=== PATIENT | female | born 1965 | race Hispanic/Latino ===

== ENCOUNTER → 2017-06-17 | Outpatient (CLI) | payer BC, SELFPAY ==
--- NOTE | 2017-06-17 16:12 | CT ---
EXAM DESCRIPTION: Head CLINICAL HISTORY: 52 years, Female, HEADACHE COMPARISON: FINDINGS: Unenhanced images through the brain. This examination was performed according to our departmental dose optimization program, which includes automatic exposure control, adjustment of the MA and/or kV according to the patient size and/or use of iterative reconstruction technique. No intracranial hemorrhage or mass. Mildly prominent sulci probably within normal limits. Ventricles are unremarkable. Mild ethmoid sinus mucosal thickening. IMPRESSION: No hemorrhage or mass. Mild ethmoid sinus mucosal thickening. Electronically signed by: Dago Reza MD 06/17/2017 4:10 PM CDT
== END | disposition home or self-care (01) ==
LOC: CT 09:27
PROVIDERS: ATTEND Family Medicine
DX: R51 Headache (principal)

== ENCOUNTER → 2017-08-11 | Outpatient (CLI) | payer BC, SELFPAY ==
--- NOTE | 2017-08-12 17:33 | MAM ---
EXAM DESCRIPTION: 3D Screening BILATERAL : Digital Mammography. CLINICAL HISTORY: 52 years Female SCREENING . No complaints. Sister with breast cancer. Postmenopausal. Has taken HRT. COMPARISON: 2-D digital digital screening bilateral study 08/03/2016 and 07/09/2015.. Report from prior examination also reviewed. TECHNIQUE: Bilateral CC and MLO projection full-field images, 3-D tomosynthesis digital mammographic technique. Also bilateral synthesized CC/ MLO full-field images . CAD not utilized. FINDINGS: The breast parenchymal density pattern is: Heterogeneously dense breast tissue, which may obscure small masses. No skin thickening or nipple retraction bilateral solitary microcalcifications. Left breast axillary lymph nodes. No focal, stellate mass or density, focal asymmetry , and no suspicious microcalcifications bilaterally. Stable mammograms compared to prior study, taking into account differences in mammographic technique IMPRESSION: BI-RADS CATEGORY: 2 - BENIGN FINDINGS. FOLLOW UP: Routine digital bilateral screening, one year interval from July 2017. Written communication explaining the IMPRESSION and follow-up, will be mailed to the patient and referring health care provider. According to the [employer], yearly mammograms are recommended starting at age 40 and continuing as long as a woman is in good health. Any breast change noted on a breast self-exam should be reported promptly to the patient's healthcare provider. Breast MRI is recommended for women with an approximately 20-25% or greater lifetime risk of breast cancer, including women with a strong family history of breast or ovarian cancer and women who have been treated for Hodgkin's disease. A negative mammographic report should not delay tissue diagnosis in patients with significant clinical history or physical findings. Extremely dense breast tissue limits the sensitivity of digital mammography. Electronically signed by: Brent Mcintosh MD 08/12/2017 5:32 PM [facility]
== END | disposition home or self-care (01) ==
LOC: MAMMO 07:54
PROVIDERS: ATTEND Obstetrics & Gynecology
DX: Z12.31 Encounter for screening mammogram for malignant neoplasm of breast (principal)
CPT/HCPCS: 77063; G0202

== ENCOUNTER → 2018-12-28 | Outpatient (CLI) | payer BC | LOC: GMAH 10:50 | PROVIDERS: ATTEND Family Medicine | DX: E03.9 Hypothyroidism, unspecified (principal); I10 Essential (primary) hypertension; E78.2 Mixed hyperlipidemia ==

== ENCOUNTER → 2019-04-12 | Outpatient (CLI) | payer BC ==
--- NOTE | 2019-04-12 17:42 | US ---
EXAM DESCRIPTION: Abdomen,Complete CLINICAL HISTORY: GENERALIZED ABDOMINAL PAIN COMPARISON: None Available. TECHNIQUE: Complete abdominal ultrasound FINDINGS: Visualized portions of the pancreas are unremarkable. No peripancreatic fluid. Bowel gas obscures some areas. Normal caliber of the aorta. Normal appearance of the inferior vena cava. Liver parenchyma is homogeneous in texture with normal echogenicity. No liver mass or intrahepatic bile duct dilatation. No liver surface irregularity. Normal appearance of hepatic veins and portal vein. Gallbladder appears normal with no intraluminal stones. No gallbladder wall thickening. Common bile duct is normal in caliber measuring 3.9 mm. The right kidney measures 12.4 cm in length. Normal renal cortical echogenicity. The renal cortical thickness appears normal. No right renal mass, shadowing stone or cyst. There is no hydronephrosis. Spleen is normal in size. No focal splenic lesion. The left kidney measures 10.2 cm in length. Normal renal cortical echogenicity. The renal cortical thickness appears normal. No left renal mass, shadowing stone or cyst. There is no hydronephrosis. IMPRESSION: No diagnostic abnormality is identified on sonographic evaluation of the upper abdomen. Electronically signed by: Mariusz Mckinney MD 04/12/2019 5:40 PM CDT
== END ==
LOC: US 14:23
PROVIDERS: ATTEND Family Medicine
DX: R10.84 Generalized abdominal pain (principal)

== ENCOUNTER → 2019-05-16 | Outpatient (CLI) | payer BC | LOC: GMA MATASK 11:33 | PROVIDERS: ATTEND Family Medicine | DX: E03.9 Hypothyroidism, unspecified (principal) ==

== ENCOUNTER 2019-12-10 11:15 | Emergency (ER) | payer BC ==
[2019-12-10] MEDS ORDERED: SODIUM CHLORIDE 0.9% 1000ML 1,000 ML IVS ONE (11:36)
[2019-12-10] MEDS ORDERED: SODIUM CHLORIDE 0.9% (FLUSH) 10 ML SYG IV PRN (11:36)
[2019-12-10] MEDS ORDERED: MEROPENEM 1 GM in SODIUM CHL 0.9% 50ML MIN-BAG+ 50 ML IVPB ONE (11:37)
--- NOTE | 2019-12-10 11:43 | ED.PDOC ---
History of Present Illness - General Chief Complaint: Abdominal Pain Stated Complaint: Abdominal pain, nausea, fever Time Seen by Provider: 12/10/19 11:35 Information Source: patient, RN notes reviewed, Vital Signs reviewed Exam Limitations: no limitations - History of Present Illness Initial Comments: This is a 54-year-old female with history of type 2 diabetes, hyperlipidemia, hypothyroidism presenting to the emergency department for 1 week of abdominal pain associated with fever x4 to 5 days. Patient states the pain began in the epigastric area and over the past 2 days has migrated to the right lower quadrant. She reports worsening pain with any p.o. intake, food or liquids. She reports associated vomiting. She states she has had intermittent fevers for the past 4 days. She saw her PCP earlier this week and was diagnosed with "abdominal infection". She was prescribed Cipro and Flagyl, reports no improvement. No cough, shortness of breath. No recent travel. 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 No known flu or coronavirus exposures. Abdominal Pain Onset Location: epigastric Pain Radiation: RLQ Quality: severe Timing/Duration: 1 week Improving Factors: nothing Worsening Factors: eating Associated Symptoms: fever/chills, nausea/vomiting Review of Systems - Review of Systems Constitutional: States: chills, fever EENTM: States: no symptoms reported Respiratory: Denies: cough, short of breath Cardiology: Denies: chest pain, edema Gastrointestinal/Abdominal: States: abdominal pain, nausea, vomiting. Denies: constipation, diarrhea Genitourinary: Denies: dysuria, frequency, hematuria Musculoskeletal: Denies: back pain, joint pain, joint swelling, muscle pain Skin: Denies: lesions, rash Neurological: Denies: anxiety, headache, numbness Endocrine: States: no symptoms reported Hematologic/Lymphatic: States: no symptoms reported Family Medical History - Family History Mother Family History: Unknown Living Status: Unknown Physical Exam - Physical Exam General Appearance: Alert, Anxious, Comfortable Eyes, Ears, Nose, Throat Exam: PERRL/EOMI, normal ENT inspection Neck: full range of motion, supple, normal inspection Respiratory: chest non-tender, lungs clear, normal breath sounds, no respiratory distress, no accessory muscle use Cardiovascular/Chest: normal peripheral pulses, regular rate, rhythm, no edema, tachycardia Peripheral Pulses: No deficit Gastrointestinal/Abdominal: guarding, tenderness - Mild epigastric tenderness, market right lower quadrant tenderness with voluntary guarding, no rebound Back Exam: normal inspection, no CVA tenderness, no vertebral tenderness Extremity: normal range of motion, non-tender, normal inspection, no pedal edema Neurologic: no motor/sensory deficits, alert, oriented x 3 Skin Exam: normal color, warm/dry Progress - Progress Progress: 12/10/19 14:[address] Dunn at [facility] in [place]. Requests transfer, requests admission to hospitalist. 12/10/19 14:[address] Cordero, hospitalist at [facility]. Will accept his transfer. MDM: Patient with severe abdominal pain migrating from the epigastric area to the rig ht lower quadrant over a week's time with associated fevers. CT showed suspected appendicolith with perforation and developing 2 x 3 x 3 cm abscess. No IR available at this facility. I feel she needs to be at a facility with IR capabilities, will transfer. She did appear possibly septic on presentation, she received 1 L of normal saline, lactates normal, no indication for large fluid bolus or evidence of severe sepsis. She was given meropenem prior to transfer. - Results/Orders Results/Orders: EKG reviewed by me personally at 11:50 AM. EKG shows sinus tachycardia rate of 112, normal axis, normal intervals, nonspecific T wave changes, no ST segment elevations or depressions. PROCEDURE: CT Abdomen and Pelvis With Intravenous Contrast CLINICAL INDICATION: The patient is 54 years years old, Female; Fever, RLQ pain TECHNIQUE: Axial computed tomography images of the abdomen and pelvis with intravenous contrast. Sagittal and coronal reformatted images were created and reviewed. This CT exam was performed using one or more of the following dose reduction techniques: automated exposure control, adjustment of the mA and/or kV according to patient size, and/or use of iterative reconstruction technique. COMPARISON: No relevant prior studies available. FINDINGS: LUNG BASES: Unremarkable. No mass. No consolidation. No pleural effusions or pneumothoraces. PLEURAL SPACE: The visualized lung bases show no evidence of mass, gross consolidation, pleural effusions or pneumothoraces. ABDOMEN: LIVER: Liver is normal in size and configuration and shows no focal defects. There is a diffuse decrease in hepatic parenchymal density in comparison to a more dense thin rind along the pericholecystic area, consistent with fatty infiltration with minimal focal sparing. Attenuation of the liver measures 72 Hounsfield units is compared to the spleen which measures 147 Hounsfield units. GALLBLADDER AND BILE DUCTS: Unremarkable. There is no evidence of calculi or pericholecystic inflammatory changes. There is no biliary ductal dilatation. PANCREAS: Unremarkable. No ductal dilatation, inflammatory changes or mass. SPLEEN: Unremarkable. No splenomegaly or focal defects. ADRENALS: Unremarkable. No mass or calcification. KIDNEYS AND URETERS: Unremarkable. There are no acute findings. There is no evidence of solid renal mass, nonobstructive intrarenal calculi or pelvocaliectases/ureterectases. STOMACH AND BOWEL: The stomach is unremarkable PELVIS: APPENDIX: There is an appendicolith along the appendiceal os which measures 0.6 cm. The appendix is dilated up up to at least 1.6 cm cm in diameter with severe mural thickening and periappendiceal/pericecal reticulation. There is a somewhat amorphous fluid collection with mildly enhancing wall measuring at least 2.1 cm T by 3.4 cm AP by by 3 cm CC in the expected location of the appendiceal tip. While a necrotic irregularly dilated appendiceal tip is conceivable, findings more likely represent acute appendicitis secondary to an obstructive appendicolith with probable perforation and developing periappendiceal abscess. There is severe mural thickening in the ascending colon and cecal tip and to a slightly milder degree in the terminal ileum likely reflecting contiguous inflammatory changes in the setting of severe acute appendicitis. Allowing for decompression, the remainder of the colon and rectum are unremarkable other than numerous scattered colonic diverticula. BLADDER: Unremarkable with the exception of mild distention. There is no evidence of cystitis, cystolithiasis or bladder mass. REPRODUCTIVE: The uterus is not identified and is probably surgically absent. There are no adnexal masses. ABDOMEN and PELVIS: INTRAPERITONEAL SPACE: Unremarkable. No free air or free fluid. No significant focal fluid collection. BONES/JOINTS: There is no evidence of acute fracture, osseous destruction or osteoblastic changes. There is moderate to severe degenerative disc disease at L5-S1 with vertebral body marginal articular osteophyte formation and moderate to severe loss of disc height. SOFT TISSUES: Unremarkable. VASCULATURE: Unremarkable. No abdominal aortic aneurysm. LYMPH NODES: Unremarkable. There is no evidence of mesenteric, retroperitoneal, pelvic or inguinal adenopathy. IMPRESSION: 1. Hepatic steatosis with minimal thinning this is likely in this sinus pericholecystic sparing. 2. There is an appendicolith along the appendiceal os which measures 0.6 cm. The appendix is dilated up up to at least 1.6 cm cm in diameter with severe mural thickening and periappendiceal/pericecal reticulation. There is a somewhat amorphous fluid collection with mildly enhancing wall measuring at least 2.1 cm T by 3.4 cm AP by by 3 cm CC in the expected location of the appendiceal tip. While a necrotic irregularly dilated appendiceal tip is conceivable, findings more likely represent acute appendicitis secondary to an obstructive appendicolith with probable perforation at the tip and developing periappendiceal abscess. THIS REPORT CONTAINS FINDINGS THAT MAY BE CRITICAL TO PATIENT CARE: The findings were verbally discussed via telephone conference with Dr. Mitchell Santos by Dr. Qian Guzman on 12/10/2019 1:39 PM CDT. The results were acknowledged and understood. "" Electronically signed by: Qian Guzman MD 12/10/2019 1:57 PM CDT 12/10/19 11:36 Sodium Chloride 0.9% (Flush) [Saline Flush Syringe] 10 ml IV PRN PRN EKG Stat Pulse Ox Stat 12/10/19 11:37 Hold Metformin x 48Hrs [id number] 12/10/19 11:50 BLOOD CULTURE Stat Laboratory Results - last 24 hr 12/10/19 12/10/19 12/10/19 11:50 11:50 11:50 WBC 10.8 RBC 4.24 Hgb 12.4 Hct 36.1 MCV 85.2 MCH 29.2 MCHC 34.2 RDW 12.7 Plt Count 377 MPV 7.3 L Absolute Neuts (auto) 8.00 H Absolute Lymphs (auto) 1.70 Absolute Monos (auto) 1.00 H Absolute Eos (auto) 0.00 Absolute Basos (auto) 0.10 Neutrophils % 74.2 Lymphocytes % 15.8 L Monocytes % 9.1 H Eosinophils % 0.3 L Basophils % 0.6 Sodium 135 Potassium 3.4 L Chloride 99 L Carbon Dioxide 25 Anion Gap 14.4 BUN 9 Creatinine 0.64 BUN/Creatinine Ratio 14.1 Random Glucose 147 H Serum Osmolality 271.5 L Lactic Acid Calcium 9.4 Total Bilirubin 0.5 AST 25 ALT 21 Alkaline Phosphatase 32 L Serum Total Protein 8.6 H Albumin 3.8 Globulin 4.8 H Albumin/Globulin Ratio 0.8 L Lipase 24 Urine Color Urine Appearance Urine pH Ur Specific [place] Urine Protein Urine Glucose (UA) Urine Ketones Urine Blood Urine Nitrite Urine Bilirubin Urine Urobilinogen Ur Leukocyte Esterase Urine RBC Urine WBC Ur Epithelial Cells Urine Bacteria 12/10/19 12/10/19 12/10/19 11:50 11:50 13:07 WBC RBC Hgb Hct MCV MCH MCHC RDW Plt Count MPV Absolute Neuts (auto) Absolute Lymphs (auto) Absolute Monos (auto) Absolute Eos (auto) Absolute Basos (auto) Neutrophils % Lymphocytes % Monocytes % Eosinophils % Basophils % Sodium Potassium Chloride Carbon Dioxide Anion Gap BUN Creatinine BUN/Creatinine Ratio Random Glucose Serum Osmolality Lactic Acid 2.0 2.2 Calcium Total Bilirubin AST ALT Alkaline Phosphatase Serum Total Protein Albumin Globulin Albumin/Globulin Ratio Lipase Urine Color Yellow Urine Appearance Clear Urine pH 7.5 Ur Specific [place] 1.005 Urine Protein Negative Urine Glucose (UA) Negative Urine Ketones Negative Urine Blood Negative Urine Nitrite Negative Urine Bilirubin Negative Urine Urobilinogen 0.2 Ur Leukocyte Esterase Negative Urine RBC 0 Urine WBC 0 Ur Epithelial Cells 3-5 Urine Bacteria Rare Departure - Departure Clinical Impression: Acute perforated appendicitis Sepsis Qualifiers: Sepsis type: sepsis due to unspecified organism Sepsis acute organ dysfunction status: without acute organ dysfunction Qualified Code(s): A41.9 - Sepsis, unspecified organism Time of Disposition: 14:15 Disposition: Transfer to Hospital Condition: Fair Departure Forms: ED Discharge - Pt. Copy, Patient Portal Self Enrollment Referrals: Tono Jean Baptiste MD [Primary Care Provider] - 1-2 Weeks Home Medications: Ambulatory Orders Ciprofloxacin HCl [Cipro] 500 mg PO BID 12/10/19 Fenofibrate 145 mg PO DAILY 12/10/19 Levothyroxine Sodium 50 mg PO DAILY 12/10/19 Losartan Potassium 50 mg PO DAILY 12/10/19 Metformin HCl [Metformin Hydrochloride E] 500 mg PO DAILY 12/10/19 Metronidazole 500 mg PO TID 12/10/19 Tramadol HCl 50 mg PO Q6H PRN 12/10/19 Critical Care Note - Critical Care Note Total Time (mins): 32 Comments: Patient with acute perforated appendicitis with evidence of sepsis requiring fluid resuscitation, antibiotics and expedited surgical management.
[2019-12-10] MEDS ORDERED: MEROPENEM 1 GM VIAL IVPB ONE (11:50)
[2019-12-10] MEDS ORDERED: SODIUM CHL 0.9% 50ML MIN-BAG+ 50 ML IVPB ONE (11:50)
[2019-12-10] MEDS ORDERED: ONDANSETRON INJ 4 MG/2 ML VIAL IV ONE (12:06)
[2019-12-10] MEDS ORDERED: MORPHINE SULFATE INJ 10 MG/ML VIAL IV ONE (12:06)
--- NOTE | 2019-12-10 13:57 | RAD ---
EXAM DESCRIPTION: Chest,1 View CLINICAL HISTORY: 54 years Female fever, sepsis COMPARISON: None TECHNIQUE: Portable AP view of the chest is obtained. FINDINGS IN THE CHEST: Heart: Allowing for magnification factors related to AP portable technique and body habitus, the heart is normal in size and configuration. Vasculature: [] There is no evidence of aortic aneurysm or acute findings. The pulmonary vascularity is normal. Mediastinum: No evidence of mass or adenopathy. Lungs: Minimal patchy density in the right lower lung medially is concerning for small area of atelectasis and/or pneumonia. The remainder the lungs are clear. Pleura: There are no pleural effusions. There are no pneumothoraces. Osseous structures: No evidence of acute fracture, osteolytic lesions or osteoblastic lesions. Tubes and catheters: None Chest wall: Unremarkable. Visualized Abdomen: Unremarkable. IMPRESSION: Minimal patchy density in the right lower lung medially is concerning for small area of atelectasis and/or pneumonia. Remainder of findings as described above. Electronically signed by: Qian Guzman MD 12/10/2019 1:55 PM CDT
--- NOTE | 2019-12-10 13:58 | CT ---
PROCEDURE: CT Abdomen and Pelvis With Intravenous Contrast CLINICAL INDICATION: The patient is 54 years years old, Female; Fever, RLQ pain TECHNIQUE: Axial computed tomography images of the abdomen and pelvis with intravenous contrast. Sagittal and coronal reformatted images were created and reviewed. This CT exam was performed using one or more of the following dose reduction techniques: automated exposure control, adjustment of the mA and/or kV according to patient size, and/or use of iterative reconstruction technique. COMPARISON: No relevant prior studies available. FINDINGS: LUNG BASES: Unremarkable. No mass. No consolidation. No pleural effusions or pneumothoraces. PLEURAL SPACE: The visualized lung bases show no evidence of mass, gross consolidation, pleural effusions or pneumothoraces. ABDOMEN: LIVER: Liver is normal in size and configuration and shows no focal defects. There is a diffuse decrease in hepatic parenchymal density in comparison to a more dense thin rind along the pericholecystic area, consistent with fatty infiltration with minimal focal sparing. Attenuation of the liver measures 72 Hounsfield units is compared to the spleen which measures 147 Hounsfield units. GALLBLADDER AND BILE DUCTS: Unremarkable. There is no evidence of calculi or pericholecystic inflammatory changes. There is no biliary ductal dilatation. PANCREAS: Unremarkable. No ductal dilatation, inflammatory changes or mass. SPLEEN: Unremarkable. No splenomegaly or focal defects. ADRENALS: Unremarkable. No mass or calcification. KIDNEYS AND URETERS: Unremarkable. There are no acute findings. There is no evidence of solid renal mass, nonobstructive intrarenal calculi or pelvocaliectases/ureterectases. STOMACH AND BOWEL: The stomach is unremarkable PELVIS: APPENDIX: There is an appendicolith along the appendiceal os which measures 0.6 cm. The appendix is dilated up up to at least 1.6 cm cm in diameter with severe mural thickening and periappendiceal/pericecal reticulation. There is a somewhat amorphous fluid collection with mildly enhancing wall measuring at least 2.1 cm T by 3.4 cm AP by by 3 cm CC in the expected location of the appendiceal tip. While a necrotic irregularly dilated appendiceal tip is conceivable, findings more likely represent acute appendicitis secondary to an obstructive appendicolith with probable perforation and developing periappendiceal abscess. There is severe mural thickening in the ascending colon and cecal tip and to a slightly milder degree in the terminal ileum likely reflecting contiguous inflammatory changes in the setting of severe acute appendicitis. Allowing for decompression, the remainder of the colon and rectum are unremarkable other than numerous scattered colonic diverticula. BLADDER: Unremarkable with the exception of mild distention. There is no evidence of cystitis, cystolithiasis or bladder mass. REPRODUCTIVE: The uterus is not identified and is probably surgically absent. There are no adnexal masses. ABDOMEN and PELVIS: INTRAPERITONEAL SPACE: Unremarkable. No free air or free fluid. No significant focal fluid collection. BONES/JOINTS: There is no evidence of acute fracture, osseous destruction or osteoblastic changes. There is moderate to severe degenerative disc disease at L5-S1 with vertebral body marginal articular osteophyte formation and moderate to severe loss of disc height. SOFT TISSUES: Unremarkable. VASCULATURE: Unremarkable. No abdominal aortic aneurysm. LYMPH NODES: Unremarkable. There is no evidence of mesenteric, retroperitoneal, pelvic or inguinal adenopathy. IMPRESSION: 1. Hepatic steatosis with minimal thinning this is likely in this sinus pericholecystic sparing. 2. There is an appendicolith along the appendiceal os which measures 0.6 cm. The appendix is dilated up up to at least 1.6 cm cm in diameter with severe mural thickening and periappendiceal/pericecal reticulation. There is a somewhat amorphous fluid collection with mildly enhancing wall measuring at least 2.1 cm T by 3.4 cm AP by by 3 cm CC in the expected location of the appendiceal tip. While a necrotic irregularly dilated appendiceal tip is conceivable, findings more likely represent acute appendicitis secondary to an obstructive appendicolith with probable perforation at the tip and developing periappendiceal abscess. THIS REPORT CONTAINS FINDINGS THAT MAY BE CRITICAL TO PATIENT CARE: The findings were verbally discussed via telephone conference with Dr. Mitchell aSntos by Dr. Qian Guzman on 12/10/2019 1:39 PM CDT. The results were acknowledged and understood. "" Electronically signed by: Qian Guzman MD 12/10/2019 1:57 PM CDT
[2019-12-10 14:06] VITALS: BP 138/76
[2019-12-10] MEDS ORDERED: HYDROmorphone HCL INJ 2 MG/ML VIAL IV ONE (14:18)
[2019-12-10 15:16] VITALS: TEMP 98.3; O2SAT 94
== END 2019-12-10 15:16 | disposition short-term general hospital (02) ==
LOC: ER 11:15
DX: K35.32 Acute appendicitis with perforation, localized peritonitis, and gangrene, without abscess (principal); A41.9 Sepsis, unspecified organism; R11.2 Nausea with vomiting, unspecified; R50.9 Fever, unspecified; E03.9 Hypothyroidism, unspecified; E11.9 Type 2 diabetes mellitus without complications; E78.5 Hyperlipidemia, unspecified
CPT/HCPCS: 71045; 74177; 80053; 81001; 83605; 83690; 85025; 87040; 93005; J1170; J2185; J2270; J2405; J7030; J7050

== ENCOUNTER → 2019-12-29 | Outpatient (CLI) | payer BC ==
--- NOTE | 2019-12-29 09:18 | CT ---
EXAM DESCRIPTION: Abdomen/Pelvis w/wo Contrast CLINICAL HISTORY: ACUTE APPENDICITIS WITH PERFORATION AND LOCALIZED PERITONITIS COMPARISON: December 10, 2019 TECHNIQUE: Pre and postcontrast CT images of the abdomen and pelvis are obtained using standard imaging protocol. This exam was performed according to our departmental dose-optimization program, which includes automated exposure control, adjustment of the mA and/or kV according to patient size and/or use of iterative reconstruction technique . FINDINGS: Visualized lung bases show no acute findings. Liver is enlarged at 18.6 cm. No enhancing hepatic mass. Spleen, pancreas, adrenal glands, and gallbladder are unremarkable. Abdominal vasculature is unremarkable. No nephrolithiasis. No ureteral calcification or obstruction. The urinary bladder is contracted, but fills with contrast on delayed images. Uterus is presumed surgically absent. Ovaries are unremarkable. Interval postsurgical changes from appendectomy. Increased attenuation fluid collection surrounded by enhancement posterior to the cecum and terminal ileum is seen measuring approximately 3.5 x 2.5 x 3.6 cm contacting the lateral aspect of the silhouette is muscle. No air in the fluid collection is seen. Stomach is poorly distended but unremarkable. Small air-filled diverticulum of the second and third portion of the duodenum near the head of the pancreas is seen. No small bowel obstruction or bowel wall thickening. Scattered diverticuli of the colon are seen without associated inflammatory changes or fluid collections. No free intraperitoneal air. Osseous structures show no aggressive bony lesions. IMPRESSION: Interval postsurgical changes from appendectomy are seen. Small abscess/phlegmon is seen in the surgical bed site from appendectomy posterior to the cecum measuring 3.6 x 2.5 cm. Moderate to severe colon diverticulosis without CT evidence of diverticulitis. Other findings are stable from previous exam as described above. Electronically signed by: Joseluis Obrien MD 12/29/2019 9:17 AM CDT
== END ==
LOC: CT 08:39
PROVIDERS: ATTEND Family Medicine
DX: L02.818 Cutaneous abscess of other sites (principal); K57.30 Diverticulosis of large intestine without perforation or abscess without bleeding; Z98.890 Other specified postprocedural states; Z90.89 Acquired absence of other organs

== ENCOUNTER → 2020-08-01 | Outpatient (CLI) | payer BC | LOC: LAB.O 15:02 | PROVIDERS: ATTEND Family Medicine | DX: E03.9 Hypothyroidism, unspecified (principal) ==

== ENCOUNTER → 2020-08-07 | Outpatient (CLI) | payer BC ==
--- NOTE | 2020-08-07 19:16 | MAM ---
EXAM DESCRIPTION: 3D Screening BILATERAL : Digital Mammography. CLINICAL HISTORY: 55 years Female SCREENING . No complaints. Patient feels a nodule adjacent to the lateral left breast. Sister with breast cancer age 34. Menarche age 15. Childbirth age 22. Menopause age 35. No HRT.. Lifetime risk of developing breast cancer (Tyrer-Cuzick model)(%): 11.2. COMPARISON: Bilateral screening digital wrist tomosynthesis July 2017 TECHNIQUE: Bilateral CC and MLO projection full-field images, digital tomosynthesis mammographic technique. Bilateral digital 2-D full-field MLO images. CAD available for 2-D images. FINDINGS: The breast parenchymal density pattern is: Scattered areas of fibroglandular density. Axillary nodes. Solitary microcalcifications. No skin thickening or nipple retraction No new focal, stellate mass or density, focal asymmetry , and no suspicious microcalcifications bilaterally. Stable mammograms compared to prior study. IMPRESSION: Benign exam. BIRAD CATEGORY: 2 BENIGN FINDINGS. RECOMMENDATIONS: FOLLOW UP: Routine digital bilateral mammographic screening, one year interval from July 2020. Written communication explaining the IMPRESSION and follow-up, will be mailed to the patient and referring health care provider. The FINDINGS and the FOLLOW-UP plan were reviewed in person with the patient after the examination. According to the [employer], yearly mammograms are recommended starting at age 40 and continuing as long as a woman is in good health. Any breast change noted on a breast self-exam should be reported promptly to the patient's healthcare provider. Breast MRI is recommended for women with an approximately 20-25% or greater lifetime risk of breast cancer, including women with a strong family history of breast or ovarian cancer and women who have been treated for Hodgkin's disease. A negative mammographic report should not delay tissue diagnosis in patients with significant clinical history or physical findings. Extremely dense breast tissue limits the sensitivity of digital mammography. Electronically signed by: Brent Mcintosh MD 08/07/2020 7:14 PM [facility]
== END ==
LOC: RAD 13:48
PROVIDERS: ATTEND Family Medicine
DX: Z12.31 Encounter for screening mammogram for malignant neoplasm of breast (principal)

== ENCOUNTER → 2020-10-17 | Outpatient (CLI) | payer BC | LOC: GMA MATASK 13:46 | PROVIDERS: ATTEND Family Medicine | DX: E03.9 Hypothyroidism, unspecified (principal); I10 Essential (primary) hypertension; E11.9 Type 2 diabetes mellitus without complications ==

== ENCOUNTER → 2020-10-22 | Outpatient (CLI) | payer BC ==
--- NOTE | 2020-10-22 16:46 | US ---
EXAM DESCRIPTION: Soft Tissue,Head/Neck: ULTRASOUND. CLINICAL HISTORY: 55 years Female localized swelling, mass and lump, neck. Supravascular focus nodule. Patient started steroid treatment on October 19, with tapering dose. COMPARISON: None Available. TECHNIQUE: Transcutaneous scanning: Vance-scale and Doppler modes. FINDINGS: Typical subcutaneous adipose tissue and muscle noted in the region of interest at the junction of the left trapezius muscle group and the left inferior lateral neck. Circumscribed lymph node with hypoechoic cortex is visualized measuring 1.8 x 1.7 x 0.6 cm. No significant vascularity in the lymph node hilum. No other abnormal vascularity. No dominant solid mass, no distinct cyst, no fluid collection, no large calcifications. IMPRESSION: 1.8 cm nonreactive lymph node in the region of interest, with no surrounding fluid collection or soft tissue mass. If symptoms recur after steroid treatment, consider additional cross-sectional imaging and laboratory correlation. Electronically signed by: Brent Mcintosh MD 10/22/2020 4:44 PM [facility]
== END ==
LOC: US 10:54
PROVIDERS: ATTEND Obstetrics & Gynecology
DX: R59.9 Enlarged lymph nodes, unspecified (principal)